=== PATIENT | female | born 1995 | race Caucasian/White ===

== ENCOUNTER 2021-09-17 03:05 | Emergency (ER) | payer OTHER ==
[~2021-09-17] VITALS: Ht 162.6 cm; Wt 90.7 kg
[2021-09-17 03:05] VITALS: BP 140/88
--- NOTE | 2021-09-17 03:05 | NUR ---
TO LOBBY , BROUGHT IN BY AMBULANCE WITH C/O ETOH
--- NOTE | 2021-09-17 03:10 | NUR ---
SEEN AND EXAMINED BY DARSHAN
[2021-09-17 03:30] VITALS: BP 140/88
--- NOTE | 2021-09-17 03:30 | NUR ---
Patient discharged with v/s stable. Written and verbal after care instructions given and explained. Patient verbalized understanding. Ambulatory with steady gait. All questions addressed prior to discharge. Advised to follow up with PMD.
== END 2021-09-17 03:30 | disposition home or self-care (01) ==
LOC: MED 03:05
DX: F10.129 Alcohol abuse with intoxication, unspecified (principal); Y90.9 Presence of alcohol in blood, level not specified
CPT/HCPCS: 99283

== ENCOUNTER 2021-11-22 04:20 | Emergency (ER) | payer OTHER ==
[~2021-11-22] VITALS: Ht 162.6 cm; Wt 90.7 kg
[2021-11-22 04:20] VITALS: BP 116/72
[2021-11-22] MEDS ORDERED: FAMOTIDINE 20 MG/2 ML VIAL IVP ONE (04:30)
[2021-11-22] MEDS ORDERED: KETOROLAC 30 MG/ML VIAL IVP ONE (04:30)
[2021-11-22] MEDS ORDERED: NACL 0.9% 1,000 ML IV ONE (04:30)
[2021-11-22] MEDS ORDERED: IBUPROFEN 600 MG TAB PO ONE (05:25)
== END 2021-11-22 06:02 ==
LOC: MED 04:20
DX: S02.2XXA Fracture of nasal bones, initial encounter for closed fracture (principal); S82.291A Other fracture of shaft of right tibia, initial encounter for closed fracture; F12.90 Cannabis use, unspecified, uncomplicated; Z02.89 Encounter for other administrative examinations; Y04.0XXA Assault by unarmed brawl or fight, initial encounter; Y93.89 Activity, other specified; Y92.89 Other specified places as the place of occurrence of the external cause; Y99.8 Other external cause status
CPT/HCPCS: 70486; 73610; 99284; Q0092; J1885; J3490